=== PATIENT | female | born 1955 | race Caucasian/White ===

== ENCOUNTER 2018-11-29 13:42 | Emergency (ER) | payer OTHER, MEDICAID ==
[~2018-11-29] VITALS: Ht 157.5 cm; Wt 133.8 kg
[2018-11-29] MEDS ORDERED: LISINOPRIL10 MG PO (14:02)
[2018-11-29] MEDS ORDERED: ADULT ASPIRIN R81 MG PO (14:03)
[2018-11-29] MEDS ORDERED: TRAMADOL 50 MG50 MG PO (14:03)
[2018-11-29] MEDS ORDERED: NICOTINE TRANSD21 M1 (14:03)
[2018-11-29] MEDS ORDERED: ANTIBIOTIC PO (14:04)
[2018-11-29 14:26] LABS: ABSOLUTE BASOPHILS 0.1 thou/uL (0.0-0.2); ABSOLUTE EOSINOPHILS 0.5 thou/uL (0.0-0.7); ABSOLUTE LYMPHOCYTES 1.8 thou/uL (0.8-5.3); ABSOLUTE MONOCYTES 0.4 thou/uL (0.0-1.2); BASOPHILS 0.7 %; EOSINOPHILS 6.3 %; HEMATOCRIT 45.1 % (37.0-47.0); HEMOGLOBIN 15.4 gm/dL (12.0-15.0); LYMPHOCYTES 23.6 %; MCH 34.2 pg (26.0-34.0); MCHC 34.1 g/dL (28.0-37.0); MCV 100.1 fL (80.0-100.0); MONOCYTES 5.5 %; MPV 8.7 fl. (7.2-11.1); NUCLEATED RBCS 0 /100WBC; PLATELET COUNT* 187 thou/uL (150-400); POLYS 63.9 %; RBC 4.51 mil/uL (4.20-5.00); RDW-CV 13.8 % (10.5-14.5); WBC 7.8 thou/uL (4.0-11.0)
[2018-11-29 14:44] LABS: CALCIUM 8.9 mg/dL (8.5-10.1); CREATININE 1.2 mg/dL (0.6-1.3); POTASSIUM 4.1 mmol/L (3.5-5.1)
[2018-11-29 14:49] LABS: ALBUMIN 3.5 g/dL (3.4-5.0); TOTAL BILIRUBIN 0.7 mg/dL (<0.1-1.0); TOTAL PROTEIN 6.5 g/dL (6.4-8.2)
[2018-11-29] MEDS ORDERED: MEDROLDOSEPACK PO (16:00)
[2018-11-29] MEDS ORDERED: NORCO 5-325 TA1 EAC1 PO (16:00)
[2018-11-29] MEDS ORDERED: NABUMETONE 750750 M1 PO (16:00)
[2018-11-29 16:27] VITALS: BP 107/50
== END 2018-11-29 16:27 | disposition home or self-care (01) ==
LOC: M.ERS 13:42
PROVIDERS: Nurse Practitioner Family
DX: I80.02 Phlebitis and thrombophlebitis of superficial vessels of left lower extremity (principal); E78.00 Pure hypercholesterolemia, unspecified; Z90.49 Acquired absence of other specified parts of digestive tract; Z98.890 Other specified postprocedural states

== ENCOUNTER → 2018-12-04 | Outpatient (CLI) | payer OTHER, MEDICAID ==
[~2018-12-04] MED LIST: ADULT ASPIRIN R81 MG PO; ANTIBIOTIC PO; LISINOPRIL10 MG PO; MEDROLDOSEPACK PO; NABUMETONE 750750 M1 PO; NICOTINE TRANSD21 M1; NORCO 5-325 TA1 EAC1 PO; TRAMADOL 50 MG50 MG PO
== END ==
LOC: M.RAD 11-25 09:20
DX: Z12.31 Encounter for screening mammogram for malignant neoplasm of breast (principal); Z13.820 Encounter for screening for osteoporosis